=== PATIENT | male | born 1970 | race Caucasian/White ===

== ENCOUNTER 2018-09-11 07:38 | Day surgery (SDC) | payer MEDICAID ==
[~2018-09-11] VITALS: Ht 175.3 cm; Wt 84.1 kg
[~2018-09-11 07:38] MED LIST: DIAZ5TAB PO; IBUP-2417 PO; LORA0.5T PO; OXYC-145 PO
[2018-09-11 07:44] VITALS: BP 145/81
[2018-09-11] MEDS ORDERED: GABA-530 PO (07:48)
[2018-09-11] MEDS ORDERED: CYCL5TAB PO (07:49)
[2018-09-11] MEDS ORDERED: fentaNYL/PF 50MCG/1 ML 2ML syringe ONE (07:59)
[2018-09-11] MEDS ORDERED: MIDAZolam 5mg/5ml vial ONE ×2 (08:00→08:58)
[2018-09-11 09:06] VITALS: BP 114/74
[2018-09-11 09:16] VITALS: BP 107/66
[2018-09-11 09:26] VITALS: BP 104/57
[2018-09-11 09:36] VITALS: BP 114/72
== END 2018-09-11 09:47 | disposition home or self-care (01) ==
LOC: GI LAB 07:38
PROVIDERS: ATTEND Internal Medicine Gastroenterology
DX: K64.8 Other hemorrhoids (principal)
CPT/HCPCS: 45350; 99152; J2250; J3010; J7030; A4620

== ENCOUNTER 2018-11-27 08:44 | Day surgery (SDC) | payer MEDICAID ==
[~2018-11-27] VITALS: Ht 175.3 cm; Wt 79.5 kg
[~2018-11-27 08:44] MED LIST changes: +CYCL5TAB PO; -DIAZ5TAB PO; +GABA-530 PO; -LORA0.5T PO; -OXYC-145 PO
[2018-11-27 08:50] VITALS: BP 135/83
[2018-11-27] MEDS ORDERED: MIDAZolam 5mg/5ml vial ONE (08:55)
[2018-11-27] MEDS ORDERED: fentaNYL/PF 50MCG/1 ML 2ML syringe ONE (08:55)
[2018-11-27] MEDS ORDERED: OMEP20CA11 PO (09:14)
[2018-11-27 10:36] VITALS: BP 110/70
[2018-11-27 10:46] VITALS: BP 116/69
[2018-11-27 10:56] VITALS: BP 116/75
[2018-11-27 11:06] VITALS: BP 117/80
== END 2018-11-27 11:10 | disposition home or self-care (01) ==
LOC: GI LAB 08:44
PROVIDERS: ATTEND Internal Medicine Gastroenterology
DX: K64.8 Other hemorrhoids (principal); K62.89 Other specified diseases of anus and rectum
CPT/HCPCS: 45350; 99152; J2250; J3010; J7040; A4620